=== PATIENT | male | born 1945 | race Caucasian/White ===

== ENCOUNTER 2023-03-04 13:53 | Emergency (ER) | payer MEDICARE, SELFPAY ==
--- NOTE | ~2023-03-04 | XR_ITS ---
EXAM: XR wrist RT min 3V DATE: 03/04/2023 19:08 HISTORY: pain, limtied ROM PAIN IS NON SPECIFIC . COMPARISON: None available. FINDINGS: Decreased mineralization. No fracture or dislocation. No lytic or blastic lesion. Mild sca ttered degenerative changes. No erosion or periosteal change. Soft tissues within normal limits. IMPRESSION: No acute osseous finding in the right wrist. Reviewed, dictated and finalized at location K.
--- NOTE | ~2023-03-04 | XR_ITS ---
EXAM: XR elbow LT min 3V DATE: 03/04/2023 19:08 HISTORY: pain left elbow . COMPARISON: None available. FINDINGS: Decreased mineralization. No fracture or dislocation. No lytic or blastic lesion. Moderate degenerative change in the left elbow. No erosion or periosteal change. Moderate elbow joint effusio n. Soft tissue swelling posteriorly. IMPRESSION: No definite fracture identified. However, there is a moderate joint effusion which may be secondary to degenerative change or occult injury, typically occult radial head fractures in a patie nt of this age. Reviewed, dictated and finalized at location K. IMPRESSION: No definite fracture identified. However, there is a moderate joint effusion which may be secondary to degenerative change or occult injury, typic ally occult radial head fractures in a patient of this age.
[2023-03-04 17:14] VITALS: BP 180/60; PULSE 58; RESP 21; TEMP 36.4; O2SAT 99
--- NOTE | 2023-03-04 18:09 | ED.GENADULT ---
HPI - General Adult General Chief complaint: Neuro Symptoms/Deficit Stated complaint: bilateral extremity tingling Time Seen by Provider: 03/04/23 17:45 Source: patient Mode of arrival: ambulatory Limitations: no limitations History of Present Illness HPI narrative: Patient is a 77 y/o male who presents to the ED with c/o bilateral arm pain. Patient reports having pain to his left forearm and left elbow since . He states his upper arm feels swollen. He denies any injury, fall, strenuous activity, heavy lifting. He also reports having pain to his right wrist and forearm since Friday. Again, denies any injury. He tried taking Naproxen this morning without much relief so he decided to prompt care. He has not tried contacting his primary care doctor. Denies any numbness or tingling. Denies weakness. He does mention he spent a prolonged period texting talking on the phone with his daughter last week, which he states did aggravate his arms. Denies history of blood clots, carpal tunnel, gout. He does note history of arthritis in his right knee. Related Data Allergies Allergy/AdvReac Type Severity Reaction Status Date / Time No Known Allergies Allergy Verified 03/04/23 17:09 Review of Systems Review of Systems: CONSTITUTIONAL: Denies fever, chills, or sweats. SKIN: See HPI. MUSCULOSKELETAL: See HPI. NEUROLOGIC: See HPI. All systems reviewed & are unremarkable except as noted in HPI and below Exam Narrative: GENERAL: Well appearing, morbidly obese with BMI of 53.4, non-toxic, in no acute distress. HEAD: Normocephalic, atraumatic. NECK: Supple. No adenopathy, no masses. RESPIRATORY: Airway patent, respirations nonlabored. Clear to auscultation bilaterally, no rales, rhonchi, wheezing. CARDIOVASCULAR: Regular rate and rhythm without murmurs, rubs, or gallops. Radial pulses 2+ and equal bilaterally. MUSCULOSKELETAL: Moves all extremities. No gross deformities. Full range of motion at shoulders bilaterally. Limited range of motion of left elbow flexion due to pain. Mild swelling noted to left elbow, no significant warmth or erythema. No significant tenderness directly over left elbow joint, proximal radius/ulna. Right wrist with tenderness over ventral surface, in area of carpal tunnel. Positive carpal compression testing. No significant pain with Tinel's sign. No paresthesias reported. Sensation intact to all fingers. SKIN: Warm, dry, normal color. No rashes. NEURO: A&O X3. Speech clear. Cranial nerves II-XII grossly intact. Steady gait. No ataxic movements. 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 No focal neurologic deficits. PSYCHIATRIC: Appropriate mood and affect. Normal interaction. Course Vital Signs Vital signs: Vital Signs Temperature 97.5 F L 03/04/23 17:14 Pulse Rate 58 L 03/04/23 17:14 Respiratory Rate 21 H 03/04/23 17:14 Blood Pressure 180/60 H 03/04/23 17:14 Pulse Oximetry 99 03/04/23 17:14 Temperature 97.5 F L 03/04/23 17:14 Pulse Rate 95 03/04/23 21:03 Respiratory Rate 18 03/04/23 21:03 Blood Pressure 179/71 H 03/04/23 21:03 Pulse Oximetry 99 03/04/23 21:03 Medical Decision Making MDM Narrative Medical decision making narrative: Patient presented to ED with several day history of bilateral arm pain. Vitals stable upon arrival, patient borderline hypertensive, he does have history of this. Patient neurologically intact. No focal neurologic deficits. Sensation intact. 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 X-ray of right wrist negative. X-ray of left elbow showing joint effusion, possible occult radial head fracture. Patient denies any recent fall or injury. Low suspicion for acute fracture, but patient does have mild limitation in left elbow flexion. Elbow does appear slightly swollen, but low suspicion for septic joint, no significant erythema or warmth to left elbow. Patient is still able to move elbow. Discussed these imaging findings with patient. Will plac
--- NOTE | 2023-03-04 20:11 | PC.NURSE ---
pt refusing elbow xrays
[2023-03-04 21:03] VITALS: BP 179/71; PULSE 95; RESP 18; O2SAT 99
--- NOTE | 2023-03-04 21:03 | PC.NURSE ---
pt refusing ultrasound
[2023-03-04] MEDS: NAPROXEN 250 MG TABLET PO (21:40)
== END 2023-03-04 21:43 | disposition home or self-care (01) ==
PROVIDERS: Emergency Provider Physician Assistant
DX: G56.02 Carpal tunnel syndrome, left upper limb (principal); M25.531 Pain in right wrist; M25.522 Pain in left elbow; M25.422 Effusion, left elbow
CPT/HCPCS: 73080; 73110; 99284; A4565; A9270